=== PATIENT | female | born 1955 | race African-American/Black ===

== ENCOUNTER → 2016-05-31 | Outpatient (CLI) | payer OTHER, BC ==
[~2016-05-31] MED LIST: LISI40TA
[2016-05-31 13:17] LABS: Bilirubin, Total 0.5 mg/dL (0.2-1.0); Calcium 9.5 mg/dL (8.5-10.1); Potassium 3.7 mmol/L (3.5-5.1); Total Protein 7.3 g/dL (6.4-8.2)
== END | disposition home or self-care (01) ==
LOC: LAB 09:12
PROVIDERS: ATTEND Internal Medicine Cardiovascular Disease
DX: I10 Essential (primary) hypertension (principal); E78.00 Pure hypercholesterolemia, unspecified
CPT/HCPCS: 36415; 80053; 80061

== ENCOUNTER → 2017-05-24 | Outpatient (CLI) | payer OTHER, BC ==
[2017-05-24 12:38] LABS: Basophils # (auto) 0 uL; Basophils % (auto) 0.7 % (0.0-2.0); Eosinophils # (auto) 0 uL; Eosinophils % (auto) 0.4 % (0.0-7.0); Hematocrit 41.6 % (36.0-46.0); Hemoglobin 13.6 g/dL (12.2-16.2); Lymphocytes # (auto) 1.7 uL; Lymphocytes % (auto) 40.6 % (10.0-50.0); Mean Corpuscular Hemoglobin 30.8 pg (28.0-32.0); Mean Corpuscular Hgb Conc. 32.7 g/dL (32.0-36.0); Mean Corpuscular Volume 94.2 fL (80.0-100.0); Monocytes # (auto) 0.4 uL; Monocytes % (auto) 8.3 % (0.0-12.0); Neutrophils # (auto) 2.1 uL; Nucleated Red Blood Cells % 0.4 %; Platelet Count (auto) 221 10^3/uL (140-450); Red Blood Cells 4.42 10^6/uL (4.0-5.20); Red Cell Distribution Width 14.1 % (11.8-14.3); White Blood Cell 4.2 10^3/uL (4.4-10.8)
[2017-05-24 12:45] LABS: Urine Blood 1+ /uL (Negative); Urine Specific Gravity 1.022 (1.001-1.035)
[2017-05-24 13:33] LABS: Albumin 4.1 g/dL (3.4-5.0); BUN/Creatinine Ratio 9.8; Bilirubin, Direct 0.2 mg/dL (0-0.2); Bilirubin, Total 0.8 mg/dL (0.2-1.0); Calcium 9.3 mg/dL (8.5-10.1); Potassium 3.5 mmol/L (3.5-5.1); Total Protein 7.7 g/dL (6.4-8.2)
[2017-05-24 20:25] LABS: Free T4 (Free Thyroxine) 1.05 ng/dL (0.89-1.76)
== END | disposition home or self-care (01) ==
LOC: LAB 09:28
PROVIDERS: ATTEND Internal Medicine Cardiovascular Disease
DX: E78.00 Pure hypercholesterolemia, unspecified (principal); D64.9 Anemia, unspecified; E11.9 Type 2 diabetes mellitus without complications; E03.9 Hypothyroidism, unspecified; E55.9 Vitamin D deficiency, unspecified; K74.1 Hepatic sclerosis; I10 Essential (primary) hypertension; D51.9 Vitamin B12 deficiency anemia, unspecified; N39.0 Urinary tract infection, site not specified
CPT/HCPCS: 36415; 80048; 80061; 80076; 81003; 82306; 82607; 83036; 84439; 84443; 85025

== ENCOUNTER → 2017-09-18 | Outpatient (CLI) | payer BC, OTHER | END | disposition home or self-care (01) | LOC: Rad HDHVI 12:56 | PROVIDERS: ATTEND Internal Medicine Cardiovascular Disease | DX: I50.23 Acute on chronic systolic (congestive) heart failure (principal); E78.00 Pure hypercholesterolemia, unspecified; E11.9 Type 2 diabetes mellitus without complications; I10 Essential (primary) hypertension; E03.9 Hypothyroidism, unspecified; R06.02 Shortness of breath | CPT/HCPCS: 93306 ==

== ENCOUNTER → 2020-09-17 | Outpatient (CLI) | payer MEDICARE, BC, OTHER ==
[~2020-09-17] MED LIST changes: -LISI40TA; +LISI40TA11
== END | disposition home or self-care (01) ==
LOC: Rad HDHVI 11:01
PROVIDERS: ATTEND Internal Medicine Cardiovascular Disease
DX: I10 Essential (primary) hypertension (principal); E78.00 Pure hypercholesterolemia, unspecified
CPT/HCPCS: 93880

== ENCOUNTER → 2020-10-07 | Outpatient (CLI) | payer MEDICARE, BC, OTHER ==
[~2020-10-07] VITALS: Ht 160 cm; Wt 68.0 kg
== END | disposition home or self-care (01) ==
LOC: Rad HDHVI 09:07
PROVIDERS: ATTEND Internal Medicine Cardiovascular Disease
DX: I11.0 Hypertensive heart disease with heart failure (principal); E78.5 Hyperlipidemia, unspecified; I50.33 Acute on chronic diastolic (congestive) heart failure; Z82.49 Family history of ischemic heart disease and other diseases of the circulatory system
CPT/HCPCS: 78452; 93017; 96374; A9500

== ENCOUNTER → 2022-10-17 | Outpatient (CLI) | payer MEDICARE, BC ==
[~2022-10-17] MED LIST changes: -LISI40TA11; +LISI40TA16
== END | disposition home or self-care (01) ==
LOC: Rad HDHVI 11:04
PROVIDERS: ATTEND Internal Medicine Cardiovascular Disease
DX: I37.1 Nonrheumatic pulmonary valve insufficiency (principal); I10 Essential (primary) hypertension; E78.5 Hyperlipidemia, unspecified
CPT/HCPCS: 93306

== ENCOUNTER → 2022-10-31 | Outpatient (CLI) | payer MEDICARE, BC ==
[~2022-10-31] VITALS: Ht 160 cm; Wt 66.2 kg
== END | disposition home or self-care (01) ==
LOC: Rad HDHVI 13:50
PROVIDERS: ATTEND Internal Medicine Cardiovascular Disease
DX: I11.0 Hypertensive heart disease with heart failure (principal); I50.33 Acute on chronic diastolic (congestive) heart failure; E78.5 Hyperlipidemia, unspecified; I42.1 Obstructive hypertrophic cardiomyopathy; Z82.49 Family history of ischemic heart disease and other diseases of the circulatory system
CPT/HCPCS: 78452; 93017; 96374; A9500

== ENCOUNTER → 2022-11-06 | Outpatient (CLI) | payer MEDICARE, BC | END | disposition home or self-care (01) | LOC: Rad HDHVI 13:00 | PROVIDERS: ATTEND Internal Medicine Cardiovascular Disease | DX: R07.89 Other chest pain (principal); I10 Essential (primary) hypertension | CPT/HCPCS: 93880 ==

== ENCOUNTER → 2024-03-31 | Outpatient (CLI) | payer MEDICARE, BC | END | disposition home or self-care (01) | LOC: Rad HDHVI 10:52 | PROVIDERS: ATTEND Internal Medicine Cardiovascular Disease | DX: I10 Essential (primary) hypertension (principal); R00.2 Palpitations | CPT/HCPCS: 93306 ==

== ENCOUNTER → 2024-04-09 | Outpatient (CLI) | payer MEDICARE, BC ==
[~2024-04-09] VITALS: Ht 160 cm; Wt 64.9 kg
--- NOTE | 2024-04-15 14:04 | DVHSR ---
APPROVED REPORT Exam: Nuclear Stress Test Indication: Screening for CAD Ht: 5 ft 3 in Wt: 143 lbs BSA: 1.68 m2 HR: 65 bpm BP: 136/88 mmHg BMI: 25.32 Rhythm: NSR, RBBB Medical History Medical History: HTN, Hypercholesterolemia, Palpitations, SOB, CHF Medications: Vit D, Simvastatin, Estrogen, Olmesartan/Amlodipine Allergies: Darvocet, Vicodin, Morphine Cardiac Risk Factors: Family Hx CAD Stress Test Details Stress Test: Exercise stress testing was performed using a Rah protocol. HR Resting HR: 65 bpmMax Heart Rate (APMHR): 151.840067 bpm Max HR Achieved: 144 bpmTarget HR (85% APMHR): 128.351438 bpm % of APMHR: 95.36 Recovery HR: 81 bpm HR response to stress: Normal HR response to stress BP Resting BP: 136/88 mmHg Max BP: 198/110 mmHg Recovery BP: 144/93 mmHg BP response to stress: Exaggerated response ECG Resting ECG: Sinus Rhythm, RBBB Stress ECG: Sinus Tachycardia Recovery ECG: Sinus Rhythm, RBBB Clinical Reason for Termination: Target HR achieved Stress Symptoms: None Exercise duration: 7 min sec Exercise capacity: 10.1 METs Stress ECG Conclusion CLINICAL RESPONSE NON ISCHEMIC NON ISCHEMIC ECG RESPONSE LESS THAN 10% LIKELIHOOD FOR STRESS INDUCED ISCHEMIC EF >55% NM EXAM: Myocardial Perfusion REST/STRESS Imaging Protocol: Rest Tc-99m/Stress Tc-99m 1 day Resting Data Rest SPECT myocardial perfusion imaging was performed in supine position 30 minutes following the int ravenous injection of 10.33 mCi of Tc-99m Sestamibi. Time of rest injection: 1420 Time of rest imagin Administration Route: IV Administration Site: Left AC Exercise Stress At peak stress, the patient was injected intravenously with 32.1 mCi of Tc-99m Sestamibi. Time of stress injection: 1522 Time of stress imagin Administration Route: IV Administration Site: Left AC Heart Rate at time of stress injection: 144 bpm. Patient continued to exercise for 1 minute(s). Gated Stress SPECT was performed 15 minutes after stress injection. The images were gated to evaluate regional wall motion and calculate left ventricular ejection fracti on. Comments Cardiolite injection at 6 minutes, 1 second into test. Study Data Post stress, the left ventricular ejection was >55%.. Nuclear Conclusion CLINICAL RESPONSE NON ISCHEMIC NON ISCHEMIC ECG RESPONSE LESS THAN 10% LIKELIHOOD FOR STRESS INDUCED ISCHEMIC EF >55%
== END | disposition home or self-care (01) ==
LOC: Rad HDHVI 14:12
PROVIDERS: ATTEND Internal Medicine Cardiovascular Disease
DX: Z13.6 Encounter for screening for cardiovascular disorders (principal); I45.10 Unspecified right bundle-branch block; I11.0 Hypertensive heart disease with heart failure; I50.33 Acute on chronic diastolic (congestive) heart failure; I42.1 Obstructive hypertrophic cardiomyopathy; E78.00 Pure hypercholesterolemia, unspecified; R06.02 Shortness of breath; R00.2 Palpitations; Z82.49 Family history of ischemic heart disease and other diseases of the circulatory system
CPT/HCPCS: 78452; 93017; 96374; A9500